=== PATIENT | female | born 1975 ===

== ENCOUNTER 2018-06-23 15:47 | Emergency (ER) | payer MEDICARE, MEDICAID ==
--- NOTE | 2018-06-23 17:06 | Emergency Department Report ---
ED Palpitations HPI - General Chief Complaint: Arrhythmia/Palpitations Stated Complaint: TACHYCARDIA Time Seen by Provider: 06/23/18 16:52 Source: EMS Mode of arrival: Stretcher Limitations: No Limitations - History of Present Illness Initial Comments: 43-year-old female with history of hypothyroidism presents the ED with complaint of palpitations. Patient states has had feeling of heart racing 2-3 days. Patient was at appointment with PCP and noted to be tachycardic patient was sent to the ER. Patient states she believes her heart rate was 118. Patient denies chest pain, shortness of breath, leg swelling or pain. Patient states she was taken off of all thyroid medication 1 month ago. Patient reports has follow-up appointment with campaign director in 2 months. PCP: Shanna hat body sorter Complaint: "heart racing" -: days(s) (3) Context: occured during rest Associated Symptoms: denies: chest pain, shortness of breath, near-syncope, nausea/vomiting - Related Data Allergies Allergy/AdvReac Type Severity Reaction Status Date / Time No Known Allergies Allergy Unverified 06/23/18 19:27 ED Review of Systems ROS: Stated complaint: TACHYCARDIA Other details as noted in HPI Comment: All other systems reviewed and negative Constitutional: denies: fever Respiratory: denies: shortness of breath Cardiovascular: palpitations. denies: chest pain Gastrointestinal: denies: nausea, vomiting Neurological: denies: headache ED Past Medical Hx - Past Medical History Hx Hypertension: Yes Additional medical history: Hyperthyroidism - Social History Smoking Status: Current Every Day Smoker Substance Use Type: None ED Physical Exam - General Limitations: No Limitations General appearance: alert, in no apparent distress - Head Head exam: Present: atraumatic, normocephalic - Eye Eye exam: Present: normal appearance, PERRL - ENT ENT exam: Present: mucous membranes moist - Neck Neck exam: Present: normal inspection, other (no goiter present) - Respiratory Respiratory exam: Present: normal lung sounds bilaterally. Absent: respiratory distress - Cardiovascular Cardiovascular Exam: Present: regular rate, tachycardia - GI/Abdominal GI/Abdominal exam: Present: soft. Absent: distended, tenderness - Extremities Exam Extremities exam: Present: normal inspection. Absent: pedal edema, calf tenderness - Neurological Exam Neurological exam: Present: alert, oriented X3 - Psychiatric Psychiatric exam: Present: normal affect, normal mood - Skin Skin exam: Present: warm, dry, intact, normal color, rash ED Course Vital Signs 06/23/18 06/23/18 16:09 19:10 Temperature 98.4 F 98.6 F Pulse Rate 100 H 96 H Respiratory 15 18 Rate Blood Pressure 132/94 Blood Pressure 111/67 [Right] O2 Sat by Pulse 100 99 Oximetry ED Medical Decision Making - Lab Data Result diagrams: 06/23/18 17:30 06/23/18 17:30 - EKG Data EKG shows normal: sinus rhythm, axis (nml), intervals (nml), QRS complexes (Q waves present in inferior lateral leads), ST-T waves (no ST elevation) Rate: normal (rate 93) - EKG Data Interpretation: nonspecific ST-T wave yunior, other (abnormal EKG) - Medical Decision Making 43-year-old female with palpitations and tachycardia sent from PCPs office. EKG , labs, chest x-ray unremarkable. Patient only slightly tachycardic here in the ED, low 100s. Patient in no distress at this time. Feels comfortable with discharge home. Advised patient to contact campaign director office for follow- up on need to restart thyroid meds. No indications of thyroid storm at this time. - Differential Diagnosis hyperthyroidism, arrythmia, dehydration Critical care attestation.: If time is entered above; I have spent that time in minutes in the direct care of this critically ill patient, excluding procedure time. ED Disposition Clinical Impression: Palpitations Disposition: DC-01 TO HOME OR SELFCARE Is pt being admited?: No Condition: Stable Instructions: Palpitations (ED) Referrals: PRIMARY CARE, [Primary Care Provider] - 3-5 Days Time of Disposition: 20:54
[2018-06-23 17:39] LABS: Basophils % (Auto) 0.5 % (0.0-1.8); Eosinophils % (Auto) 0.5 % (0.0-4.3); Hematocrit 36.6 % (30.3-42.9); Hemoglobin 12.4 gm/dl (10.1-14.3); Lymphocytes # (Auto) 1.3 K/mm3 (1.2-5.4); Lymphocytes % (Auto) 27.9 % (13.4-35.0); Mean Corpuscular HGB Conc 34 % (30-34); Mean Corpuscular Hemoglobin 29 pg (28-32); Mean Corpuscular Volume 85 fl (79-97); Monocytes # (Auto) 0.4 K/mm3 (0.0-0.8); Monocytes % (Auto) 9.3 % (0.0-7.3); Platelet Count 269 K/mm3 (140-440); Red Blood Count 4.29 M/mm3 (3.65-5.03); Red Cell Distribution Width 14.2 % (13.2-15.2)
[2018-06-23 17:56] LABS: BUN/Creatinine Ratio 23; Blood Urea Nitrogen 9 mg/dL (7-17); Calcium 9.4 mg/dL (8.4-10.2); Hemolysis Index 1
[2018-06-23 20:03] VITALS: BP 111/67
[2018-06-23] MEDS ORDERED: NACL 0.9% 1000 ML 1,000 ML IV ONE (20:10)
--- NOTE | 2018-06-23 20:55 | XRay Report ---
FINAL REPORT PROCEDURE: XR CHEST 1V AP TECHNIQUE: Chest radiograph anteroposterior view. CPT 78907 HISTORY: palpitations COMPARISON: No prior studies are available for comparison. FINDINGS: Heart: Normal. Mediastinum/Vessels: Normal. Lungs/Pleural space: Normal. Bony thorax: No acute osseous abnormality. Life support devices: None. IMPRESSION: No acute cardiopulmonary abnormality.
== END 2018-06-23 21:43 | disposition home or self-care (01) ==
LOC: ED 15:47
DX: R00.2 Palpitations (principal); I10 Essential (primary) hypertension; F17.200 Nicotine dependence, unspecified, uncomplicated; E05.90 Thyrotoxicosis, unspecified without thyrotoxic crisis or storm
CPT/HCPCS: 36415; 71045; 80048; 84484; 85025; 93005; 93010; 99284; J7030